=== PATIENT | male | born 1960 | race Caucasian/White ===

== ENCOUNTER → 2017-09-27 | Outpatient (CLI) | payer OTHER ==
[~2017-09-27] MED LIST: BYSTOLIC 5 MG5 M1 PO; CENTRUM SILVER1 EAC2 PO; CRESTOR20 MG PO; ECHINACEA & GO1 EACH PO; FISH OIL OMEGA1 EAC1 PO; HYDROCODON-ACE1 EAC5 PO; IBUPROFEN 200200 M1 PO; NEXIUM40 MG PO; ONDANSETRON HCL4 M2; VITAMIN D3400 UNIT PO
[2017-09-27 09:35] LABS: ABSOLUTE EOSINOPHILS 0.1 thou/uL (0.0-0.7); ABSOLUTE LYMPHOCYTES 1.2 thou/uL (0.8-5.3); ABSOLUTE MONOCYTES 0.4 thou/uL (0.0-1.2); ABSOLUTE NEUTROPHILS 3.6 thou/uL (1.6-8.1); BASOPHILS 0.6 %; EOSINOPHILS 1.8 %; HEMATOCRIT 43.9 % (42.0-52.0); HEMOGLOBIN 15.2 gm/dL (14.0-18.0); LYMPHOCYTES 23.1 %; MCH 31.4 pg (26.0-34.0); MCHC 34.7 g/dL (28.0-37.0); MCV 90.4 fL (80.0-100.0); MONOCYTES 7.3 %; MPV 8.9 fl. (7.2-11.1); NUCLEATED RBCS 0 /100WBC; PLATELET COUNT* 98 thou/uL (150-400); POLYS 67.2 %; RBC 4.85 mil/uL (4.50-6.00); RDW-CV 13.1 % (10.5-14.5); WBC 5.3 thou/uL (4.0-11.0)
[2017-09-27 09:38] LABS: CALCIUM 8.4 mg/dL (8.5-10.1); CREATININE 1.2 mg/dL (0.6-1.3); POTASSIUM 4.1 mmol/L (3.5-5.1)
== END ==
LOC: M.LAB 09:05
PROVIDERS: Radiology Radiation Oncology
DX: E03.9 Hypothyroidism, unspecified (principal); Z85.810 Personal history of malignant neoplasm of tongue

== ENCOUNTER → 2017-09-29 | Outpatient (CLI) | payer OTHER ==
--- NOTE | 2017-10-09 23:02 | ONC ---
[place] [address] RADIATION ONCOLOGY NOTE Name: GINO SECOBEDO Room: [facility]#: [id number] Admission: 09/29/17 Attend Phys: Marciano Ramsey MD Discharge: Date of : 58 Report #: [id number] THIS REPORT FOR: //name// CC: Marciano Solano MD DATE OF SERVICE: 09/29/2017 [facility] phone is [phone]. 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 The patient completed radiation treatments on 10/04/2014. PROCEDURE: Nasopharyngolaryngoscopy. FINDINGS: On nasopharyngolaryngoscopy via the left nostril after administration of a small amount of 2% viscous lidocaine orally and 2% viscous lidocaine to the left nostril with a cotton swab; there were no visible lesions in the nasopharynx or posterior oropharynx and there were no visible lesions involving the base of tongue area. The patient's true vocal cords were normally mobile bilaterally without any visible lesions. There was no evidence of head and neck cancer. Thank you for allowing me to participate in the care of this patient. <ELECTRONICALLY SIGNED> By: Marciano Ramsey MD 10/09/17 [id number] arin Plummer
--- NOTE | 2017-10-10 | ONC ---
[place] [address] RADIATION ONCOLOGY NOTE Name: FANNYGINO M Room: [facility]#: [id number] Admission: 09/29/17 Attend Phys: Marciano Ramsey MD Discharge: Date of : 58 Report #: [id number] THIS REPORT FOR: //name// CC: Marciano Solano MD DATE OF SERVICE: 09/29/2017 RADIATION ONCOLOGY FOLLOWUP NOTE REFERRING PHYSICIANS: Sofia Solano MD; Ismael Stephens DO and Yesica Olivares MD. [facility] phone is [phone]. 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 The patient completed radiation treatments on 10/04/2014. INTERVAL NOTE: The patient says that he is eating a regular diet. He usually drinks water with his food since he does have some mild xerostomia. He feels like he is eating well. He still has chronic tinnitus. MEDICATIONS: Crestor, multivitamin, and vitamin D supplement. SOCIAL HISTORY: He does not smoke cigarettes. REVIEW OF SYSTEMS: RESPIRATORY: Breathing was stable. He was not short of breath. GASTROINTESTINAL: He is eating a regular diet and he has a good appetite. NEUROLOGIC: The patient has chronic tinnitus. PHYSICAL EXAMINATION: VITAL SIGNS: The patient weighed 167.6 pounds on 09/29/2017, the patient weighed 164.6 pounds on 10/23/2016. On 09/29/2017, oxygen saturation was 96%, pulse 72, respirations 18. LYMPH NODES: He had no palpable cervical or supraclavicular lymphadenopathy. HEAD, EYES, EARS, NOSE AND THROAT EXAMINATION: Mouth had no suspicious visible lesions or suspicious palpable lesions. On nasopharyngolaryngoscopy after administering a small amount of 2% viscous lidocaine orally and 2% viscous lidocaine via the left nostril with a cotton swab, there [place] [address] RADIATION ONCOLOGY NOTE Name: GINO ESCOBEDO Room: [facility]#: [id number] Admission: 09/29/17 Attend Phys: Marciano Ramsey MD Discharge: Date of : 58 Report #: [id number] the nasopharynx or posterior oropharynx. There were no visible lesions in the base of tongue area. The true vocal cords were normally mobile bilaterally without any visible lesions. HEART: Had a regular rate and rhythm without murmur. LUNGS: were clear to auscultation. LABORATORY DATA: From 09/27/2017, white blood count was 5.3, hemoglobin 15.2, platelets are 98,000. TSH was 4.811. Sodium 139, potassium 4.1, BUN 21, creatinine 1.2, calcium was just slightly lower than normal at 8.4. ASSESSMENT AND PLAN: 1. History of head and neck cancer- There is no evidence of head and neck cancer at this time. The patient is scheduled to see his medical oncologist, Dr. Solano, on 04/06/2018 and she ordered lab work at that time. I ordered a basic metabolic panel, complete blood count and ionized calcium in about 1 year and I asked the patient to schedule a follow up appointment with me afterwards. 2. Hypothyroidism- The patient was prescribed 25 mcg of levothyroxine and TSH was ordered in a year. The patient was asked to schedule a followup appointment to see me afterwards. 3. Dental care. The patient was given a refill for PreviDent for dental care. 4. Slightly lower than normal calcium- this could just be a slightly lower total calcium with a normal ionized calcium, so I ordered an ionized and calcium in a year. Dr. Solano is ordering a complete metabolic panel in March. 5. Hyperlipidemia- The patient takes Crestor and that is managed by his referring physicians. Thank you for allowing me to participate in the care of this patient. <ELECTRONICALLY SIGNED> By: Marciano Ramsey MD 10/10/17 0000 1230 2051Dsavi Ramsey MD /nt
== END | disposition home or self-care (01) ==
LOC: M.RTH 03:27
DX: Z85.810 Personal history of malignant neoplasm of tongue (principal); E03.9 Hypothyroidism, unspecified; E78.5 Hyperlipidemia, unspecified; Z98.890 Other specified postprocedural states; Z79.899 Other long term (current) drug therapy

== ENCOUNTER → 2018-09-29 | Outpatient (CLI) | payer OTHER ==
[2018-09-29 09:27] LABS: ABSOLUTE EOSINOPHILS 0.1 thou/uL (0.0-0.7); ABSOLUTE LYMPHOCYTES 1.5 thou/uL (0.8-5.3); ABSOLUTE MONOCYTES 0.4 thou/uL (0.0-1.2); ABSOLUTE NEUTROPHILS 3.4 thou/uL (1.6-8.1); BASOPHILS 0.6 %; EOSINOPHILS 1.6 %; HEMATOCRIT 45.1 % (42.0-52.0); HEMOGLOBIN 15.8 gm/dL (14.0-18.0); LYMPHOCYTES 27.8 %; MCH 31.3 pg (26.0-34.0); MCV 89.5 fL (80.0-100.0); MPV 8.7 fl. (7.2-11.1); NUCLEATED RBCS 0 /100WBC; PLATELET COUNT* 98 thou/uL (150-400); RBC 5.05 mil/uL (4.50-6.00); RDW-CV 13.4 % (10.5-14.5); WBC 5.5 thou/uL (4.0-11.0)
[2018-09-29 09:38] LABS: CALCIUM 8.9 mg/dL (8.5-10.1); CREATININE 1.3 mg/dL (0.6-1.3); POTASSIUM 4.3 mmol/L (3.5-5.1)
== END ==
LOC: M.LAB 09:05
PROVIDERS: Radiology Radiation Oncology
DX: E03.9 Hypothyroidism, unspecified (principal); E83.51 Hypocalcemia; Z85.810 Personal history of malignant neoplasm of tongue

== ENCOUNTER → 2018-10-07 | Outpatient (CLI) | payer OTHER ==
--- NOTE | ~2018-10-07 | ONC ---
[address] [address] RADIATION ONCOLOGY NOTE Name: GINO ESCOBEDO Room: [facility]#: [id number] Admission: 10/07/18 Attend Phys: Marciano Ramsey MD Discharge: Date of : 58 Report #: [id number] THIS REPORT FOR: //name// CC: Marciano Stephens DATE OF SERVICE: 10/07/2018 REFERRING PHYSICIANS: Include Dr. Ismael Stephens, Dr. Yesica Molina, Dr. Sofia Solano. [facility] phone is [phone]. 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 The patient completed radiation treatments on 10/04/2014. INTERVAL NOTE: The patient is eating a regular diet. He does have some muscle spasms around the right mandible about once or twice a week. He is mild xerostomia. He does have chronic tinnitus, may be interested in audiology exam. MEDICATIONS: Include Crestor, multivitamin and 25 mcg of levothyroxine per day. SOCIAL HISTORY: Does not smoke cigarettes. REVIEW OF SYSTEMS: RESPIRATORY: Breathing was stable. He was not short of breath. GASTROINTESTINAL: He is eating a regular diet. He has a good appetite. PHYSICAL EXAMINATION: VITAL SIGNS: The patient weighed 179 pounds on 10/07/2018, 167.6 pounds on 09/29/2018. On 10/07/2018, blood pressure is 124/83, pulse 62, respirations 18 and oxygen 97%. LYMPH NODES: The patient had no palpable cervical or supraclavicular lymphadenopathy. HEAD, EYES, EARS, NOSE AND THROAT: Mouth had no suspicious visible lesions or suspicious palpable lesions. On nasopharyngolaryngoscopy after administrating a small amount of 2% viscous lidocaine orally, 2% viscous lidocaine to the left nostril with a cotton swab. There were no visible lesions in the nasopharynx or posterior oropharynx and no visible lesions in the base of tongue area. The true vocal cords were normally mobile bilaterally without any visible lesions. HEART: Had a regular rate and rhythm without murmur. LUNGS: Clear to auscultation. LABORATORY DATA: From 09/29/2018, white blood cell count was 5.5, hemoglobin 15.8 and platelets were 98,000 and the platelets were also 98,000 on 09/27/2018, [place] [address] RADIATION ONCOLOGY NOTE Name: GINO ESCOBEDO Room: [facility]#: [id number] Admission: 10/07/18 Attend Phys: Marciano Ramsey MD Discharge: Date of : 58 Report #: [id number] so ____. These were done at [facility]. His sodium was 138, potassium 4.3, BUN 23, creatinine 1.3, calcium ionized was 5.4, which is within normal limits with the normal limits being 4.5-5.6. TSH was 2.834 which was again within normal limits. The patient is taking 25 mcg of levothyroxine per day. ASSESSMENT AND PLAN: 1. History of head and neck cancer. There is no evidence of head and neck cancer at this time. The patient has an appointment for lab work and to see his medical oncologist, Dr. Solano on 04/11/2019. I gave the patient a requisition for complete blood count, basic metabolic panel, TSH in 09/2019. The patient was asked to schedule a followup appointment to see me afterwards. 2. Hypothyroidism -- The patient was given a refill for 25 mcg of levothyroxine and a TSH was ordered in about a year and the patient was asked to schedule a followup appointment to see me afterwards. 3. Dental care. The patient was given a refill for PreviDent fluoride gel, which the patient uses on a regular basis. 4. Muscle spasms around the right mandibular area. The patient will be referred to the Oncology rehab physician, Dr. Baltazar to evaluate that issue. 5. Tinnitus/decreased hearing acuity. The patient will be referred to Dr. Molina to be set up for audiology evaluation for this issue. Thank you for allowing me to participate in the care of this patient. By: 1559 [id number] Ramsey MD /garret
--- NOTE | ~2018-10-07 | ONC ---
[place] [address] RADIATION ONCOLOGY NOTE Name: GINO ESCOBEDO Room: [facility]#: [id number] Admission: 10/07/18 Attend Phys: Marciano Ramsey MD Discharge: Date of : 58 Report #: [id number] THIS REPORT FOR: //name// CC: Marciano Stephens DATE OF SERVICE: 10/07/2018 REFERRING PHYSICIANS: Ismeal Stephens DO and Yesica Molina MD and Sofia Solano MD [facility] phone is [phone]. PRIMARY SITE AND HISTOPATHOLOGY: The patient received definitive chemoradiotherapy for stage 4A poorly differentiated squamous cell carcinoma of base of tongue. The patient completed radiation treatments on 10/04/2014. PROCEDURE: Nasopharyngolaryngoscopy. FINDINGS: On nasopharyngolaryngoscopy via left nostril after administration of a small amount of 2% viscous lidocaine orally and 2% viscous lidocaine to the left nostril with a cotton swab, there are no visible lesions in the nasopharynx or posterior oropharynx and no visible lesions involving the base of tongue area. The patient's true vocal cords are normally mobile bilaterally without any visible lesions. There is no evidence of head and neck cancer. Thank you for allowing me to participate in the care of this patient. By: 1553 MD arin Orozco
== END ==
LOC: M.RTH 04:58
DX: Z08 Encounter for follow-up examination after completed treatment for malignant neoplasm (principal); E03.9 Hypothyroidism, unspecified; M62.838 Other muscle spasm; H93.19 Tinnitus, unspecified ear; Z85.89 Personal history of malignant neoplasm of other organs and systems

== ENCOUNTER → 2020-11-19 | Outpatient (CLI) | payer OTHER | LOC: M.RAD 10:00 | PROVIDERS: ATTEND Internal Medicine Gastroenterology | DX: D50.9 Iron deficiency anemia, unspecified (principal) ==